=== PATIENT | male | born 1970 | race Hispanic/Latino ===

== ENCOUNTER 2017-01-19 16:48 | Inpatient (IN) ==
[2017-01-19] MEDS ORDERED: HUMULIN R IV ONE (17:38)
[2017-01-19 17:39] LABS: URINE CULTURE PL NEEDED? NO
[2017-01-19] MEDS ORDERED: NS 1,000 ML IV ONE (17:39)
[2017-01-19 17:40] LABS: MANUAL DIFF NEEDED? NO
[2017-01-19 17:43] LABS: BASO% 0.4 % (0.0-0.8); EOS# 0.37 X1000 (0.0-0.7); EOS% 3.8 % (0.0-10.0); HEMATOCRIT 46.1 % (42.0-52.0); HEMOGLOBIN 16.5 g/dL (14.0-18.0); IMM GRAN# 0.06 X1000 (0.0-0.04); IMM GRAN% 0.6 % (0.0-0.5); LYMPH# 1.36 X1000 (1.2-3.4); LYMPH% 13.9 % (20.5-51.1); MCH 31.6 PG (27-31); MCHC 35.8 g/dL (33-37); MCV 88.3 FL (81-99); MONO# 0.81 X1000 (0.11-0.59); MONO% 8.3 % (1.7-9.3); MPV 11.1 FL (7.4-10.4); PLT 181 X1000 (130-400); RBC 5.22 XMIL (4.7-6.1)
[2017-01-19] MEDS ORDERED: HUMULIN R (PARKWAY) ONE (17:43)
[2017-01-19 17:48] LABS: BILIRUBIN URINE NEGATIVE (NEGATIVE); BLOOD URINE NEGATIVE (NEGATIVE); CLARITY CLEAR (CLEAR); COLOR YELLOW; LEUKOCYTES URINE NEGATIVE (NEGATIVE); NITRITE URINE NEGATIVE (NEGATIVE); PROTEIN URINE NEGATIVE (NEGATIVE); UROBILINOGEN URINE NORMAL
[2017-01-19 17:52] LABS: URINE CAST NONE SEEN /LPF; URINE CRYSTAL NONE SEEN /HPF; URINE EPITHELIAL CELLS <10 /HPF (<10); URINE RBC <10 /HPF (<10); URINE SOURCE CLEAN CATCH; URINE WBC <10 /HPF (<10)
[2017-01-19 17:59] LABS: HEMOGLOBIN A1C 9.4 % (4.8-6.0)
--- NOTE | 2017-01-19 18:00 | PROVIDER DOCUMENTATION ---
This chart was entered by Marcy Oviedo Scribe, acting as scribe for Gaby Lafleur MD. HPI-General Adult - General Chief Complaint: High Blood Sugar Stated Complaint: BLOOD SUGAR Time Seen by Provider: 01/19/17 17:20 Source: patient Allergies/Adverse Reactions: Patient Allergies Allergy/AdvReac Type Severity Reaction Status Date / Time No Known Allergies Allergy Verified 01/19/17 17:01 Home Medications: Home Medication List Medication Instructions Recorded Confirmed Last Taken Type NK [No Home Medications] 01/19/17 01/19/17 Unknown History - History of Present Illness -Gen Adult Nature of Presenting Problems: PT is a 46 y/o M that presents to ED after being sent from Urgent care for High blood sugar. PT went to urgent care for lower back pain. They determined he did not have a UTI. pt had fsbs of 444 at urgent care. PT has no hx of DM. Location of Pain/Injury: reports: back (lumbar region), other (High blood sugar. sent from urgent care.) Pain Radiation: reports: no radiation Quality of Pain: reports: sharp Severity: reports: moderate Onset/Duration: reports: abrupt, other (2 weeks) Timing: reports: still present Context/Activities at Onset: reports: none Modifying Factors: improves with: nothing Associated Symptoms: reports: other (fatigue, urinating a lot and very thirsty.) Similar Symptoms Previously?: No Recently seen or treated by another doctor?: No Review of Systems - Adult - REVIEW OF SYSTEMS - ADULT Constitutional: reports: other (High blood sugar 444 in urgent care). denies: chills, fever Eyes: reports: no symptoms reported Ears, Nose, Mouth & Throat: reports: no symptoms reported Cardiovascular: reports: no symptoms reported Respiratory: reports: no symptoms reported Gastrointestinal: reports: no symptoms reported Genitourinary: reports: frequency Musculoskeletal: reports: back pain (lumbar) Integumentary: reports: no symptoms reported Neurological: reports: no symptoms reported Psychiatric: reports: no symptoms reported Endocrine: reports: increased thirst Hematologic/Lymphatic: reports: no symptoms reported Allergic/Immunologic: reports: no symptoms reported All Other Systems: Reviewed and Negative Past History - Adult - PAST MEDICAL HISTORY-ADULT Review of Records: reports: Old Records Reviewed, Nursing Assessment Review, Medications Reviewed - SOCIAL HISTORY Smoking: non-smoker Physical Exam-General - PHYSICAL EXAM-ADULT Initial Vital Signs Reviewed: Yes (pt finger stick in ED 454) - CONSTITUTIONAL General Appearance: appears well, alert, no apparent distress - EYES Eyes: PERRL/EOMI - HEAD, EARS, NOSE, MOUTH & THROAT HENMT: normocephalic/atraumatic, moist mucous membranes - NECK Neck: non-tender, full range of motion, supple - RESPIRATORY Respiratory: chest non-tender, lungs clear, normal breath sounds - CARDIOVASCULAR Cardiovascular: normal peripheral pulses, regular rate, rhythm, no edema - GASTROINTESTINAL (ABDOMEN) Abdominal Exam: normal bowel sounds, non tender, soft - LYMPHATIC Lymphatic: no adenopathy - MUSCULOSKELETAL Back Exam: normal inspection, no CVA tenderness, no vertebral tenderness Extremity: normal range of motion, non-tender - SKIN Integumentary: normal color, normal turgor, warm/dry - NEUROLOGIC Neurologic: patient safety manager II-XII nml as tested, grossly normal - PSYCHIATRIC Psych/Mental Status: normal mood/affect, normal thought content, oriented x 3 Progress - PLAN OF CARE/RESULTS Progress/Plan/Lab Results: Vital Signs - 8 hr 01/19/17 16:56 Temperature 98 F Pulse Rate 86 Respiratory Rate 18 Blood Pressure 148/94 O2 Sat by Pulse Oximetry 97 Laboratory Results - last 24 hr 01/19/17 01/19/17 01/19/17 17:02 17:30 17:36 WBC 9.81 RBC 5.22 Hgb 16.5 Hct 46.1 MCV 88.3 MCH 31.6 H MCHC 35.8 RDW Std Deviation 12.5 Plt Count 181 MPV 11.1 H Immature Gran % (Auto) 0.6 H Neut % (Auto) 73.0 Lymph % (Auto) 13.9 L [place] % (Auto) 8.3 Eos % (Auto) 3.8 Baso % (Auto) 0.4 Immature Gran # (Auto) 0.06 H Neut # (Auto) 7.17 H Lymph # (Auto) 1.36 [place] # (Auto) 0.81 H Eos # (Auto) 0.37 Baso # (Auto) 0.04 POC Glucose 454 H Urine Color YELLOW Urine Clarity CLEAR Urine pH 6.0 Ur Specific [place] 1.010 Urine Protein NEGATIVE Urine Ketones NEGATIVE Urine Blood NEGATIVE Urine Nitrite NEGATIVE Urine Bilirubin NEGATIVE Urine Urobilinogen NORMAL Urine WBC NEGATIVE Urine Glucose 3+(500 mg/dL) A Orders Category Date Time Status Finger Stick Blood Sugar (ED) DIRECTED Care 01/19/17 17:04 Active CHEST-PORTABLE [RAD] Stat Exams 01/19/17 17:40 Ordered A1C HGB W EST AVG GLUCOSE [CHEM] Stat Lab 01/19/17 17:36 Received ACETONE SERUM [CHEM] Stat Lab 01/19/17 17:36 Received CBC WITH DIFF [HEME] Stat Lab 01/19/17 17:36 Completed COMPREHENSIVE METABOLIC PANEL [CHEM] Stat Lab 01/19/17 17:[address] W/POSS RFLX CULT [URINALYSIS] Stat Lab 01/19/17 17:30 Results 0.9% Sodium Chloride Inj [Ns] 1,000 ml Med 01/19/17 17:39 Active IV 999 mls/hr Insulin Human Regular ([place] [Humulin R ([place])] Med 01/19/17 17:43 Discontinued 1 units .ROUTE .STK-MED ONE Insulin Human Regular [Humulin R] Med 01/19/17 17:38 Discontinued 8 unit IV NOW ONE Result Diagrams: 01/21/17 06:08 01/20/17 07:30 - CHANGE OF SHIFT REPORT (ED Provider) Report Given and Care Transferred to:: Dr. Sung Time of Transfer: 17:59 Items Pending: Labs, XRAY Results, Physician Consult/Arrival, Other (Dispo) Departure - Departure Date of Disposition Decision: 01/19/17 Time of Disposition Decision: 20:50 DIAGNOSIS: Hyperglycemia Disposition: ADMITTED INPATIENT 09 Certified Medical Emergency: Emergent Condition: Stable - Critical Care Note This patient required my direct & personal management of CC.: No Attestation - Physician/ JEROME Attestation Patient care was provided by Advanced Practice Provider:: No The physician spent face to face time with patient:: Yes Advanced Practice Provider documentation review:: Supervising physician onsite and consulted in the evaluation and care of this patient. The physician did have a face to face encounter with the patient. This chart was documented by the indicated scribe, (Marcy Oviedo, Brieibe) and accurately reflects the services I performed and decisions made by me, Gaby Lafleur MD, as attested by the provider's signature.
[2017-01-19 18:02] LABS: ACETONE SERUM NEGATIVE (NEGATIVE)
[2017-01-19 18:38] LABS: AGAP 16; ALBUMIN 4.5 g/dL (3.5-5.0); ALKALINE PHOSPHATASE 249 U/L (32-122); BUN 8 mg/dL (8-22); CALCIUM 9.1 mg/dL (8.8-10.2); CHLORIDE 94 mmol/L (98-107); COSMO 279; GOT 61 U/L (10-34); GPT 113 U/L (10-44); POTASSIUM 4.7 mmol/L (3.5-5.1); SODIUM 130 mmol/L (136-145); TCO2 20 mmol/L (25-35); TOTAL PROTEIN 8.1 g/dL (6.3-8.3)
[2017-01-19] MEDS ORDERED: NS 3,000 ML IV ONE (18:57)
--- NOTE | 2017-01-19 20:04 | Diag Imaging Result Doc PS360 ---
EXAM: CHEST-PORTABLE INDICATION: Cough TECHNIQUE: One view COMPARISON: None. FINDINGS: The lungs are grossly clear. There is no discrete pleural fluid collection or pneumothorax. The cardiomediastinal silhouette and central vasculature are grossly unremarkable. IMPRESSION: No evidence of acute pathology by plain radiograph. Electronically signed by Neptali Liu 01/19/2017 8:01 PM
[2017-01-19] MEDS ORDERED: HUMULIN R DOSE (PARKWAY) SUBQ SCH (21:00)
[2017-01-20] MEDS: HUMULIN R (PARKWAY) SUBQ SCH ×4 (06:06→21:45)
[2017-01-20 08:16] LABS: HEMATOCRIT 41.7 % (42.0-52.0); HEMOGLOBIN 14.7 g/dL (14.0-18.0); MCH 31.6 PG (27-31); MCHC 35.3 g/dL (33-37); MCV 89.7 FL (81-99); MPV 11.4 FL (7.4-10.4); RBC 4.65 XMIL (4.7-6.1)
[2017-01-20 08:24] LABS: AGAP 9; ALBUMIN 3.5 g/dL (3.5-5.0); ALKALINE PHOSPHATASE 180 U/L (32-122); BUN 7 mg/dL (8-22); CALCIUM 8.6 mg/dL (8.8-10.2); CHLORIDE 101 mmol/L (98-107); COSMO 275; GOT 64 U/L (10-34); GPT 94 U/L (10-44); MAGNESIUM 1.7 mg/dL (1.5-2.7); POTASSIUM 3.6 mmol/L (3.5-5.1); SODIUM 135 mmol/L (136-145); TCO2 24 mmol/L (25-35); TOTAL PROTEIN 6.9 g/dL (6.3-8.3)
[2017-01-20] MEDS: GLUCOPHAGE PO SCH ×2 (08:38→16:46)
[2017-01-20] MEDS: NS 1,000 ML IV SCH (13:16)
--- NOTE | 2017-01-20 14:39 | HISTORY AND PHYSICAL ---
CHIEF COMPLAINT: High blood sugar. HISTORY OF PRESENT ILLNESS: This is a 46-year-old gentleman who presented to an urgent care complaining of lower back pain. He was found to have a fingerstick blood sugar of 444, as he has no prior diagnosis of diabetes mellitus. He was sent to the ER for further evaluation. He does state that he has been having some low back pain over the last 2 weeks. It waxes and wanes. He describes it as a sharp pain. There is no radiation, no accompanying symptoms. He has been very thirsty and had very frequent urination over this last 2 weeks. He does have a history of low back pain. He denied any hematuria or dysuria, fever or chills. He was given a liter of IV fluid in the emergency room along with 8 units of insulin IV, and he is being admitted for further evaluation and treatment. PAST MEDICAL HISTORY: He denies. SOCIAL HISTORY: He denies alcohol, tobacco, or illicit drug use. PAST SURGICAL HISTORY: Denies. ALLERGIES: No known drug allergies. HOME MEDICATIONS: Denies. REVIEW OF SYSTEMS: A 14-point review of systems is discussed with patient with pertinent positives stated in the HPI. He denied chest pain, palpitations, dizziness, syncope, nausea, vomiting, diarrhea, constipation, black or bloody vomitus, black or bloody stools. PHYSICAL EXAMINATION: GENERAL: This is a 46-year-old male who is sitting in the bed in no distress. VITAL SIGNS: Blood pressure is 126/82 with a heart rate of 72, respirations are 18, temperature is 98.8 degrees with room air saturations of 98%. HEENT: Head is normocephalic, atraumatic. Pupils equal, round, react to light. EOMs are intact. Sclerae are anicteric. Mucous membranes are dry. NECK: Supple. Trachea midline. CARDIOVASCULAR: Regular rate and rhythm. S1, S2 appreciated. PULMONARY: Breath sounds are clear. No increased work of breathing noted. BACK: No CVAT. No spine tenderness. MUSCULOSKELETAL: Good range of motion of joints. NEUROLOGIC: He is alert and oriented x3. EXTREMITIES: No clubbing, cyanosis, or edema. Calves are nontender. Pulses are palpable x4. LABORATORY DATA: WBC is 9.81 with hemoglobin 16.5, hematocrit 46.1 and platelets of 181,000. Sodium is 130, potassium 4.7. BUN 8, creatinine 0.8 with a glucose of 458. Hemoglobin A1c is 9.4 with AST of 61, ALT of 113, and alkaline phosphatase of 249. Urinalysis is essentially negative. Acetone is negative. Chest x-ray reveals no evidence of acute pathology. ASSESSMENT AND PLAN: 1. New diagnosis of diabetes mellitus. 2. Hyperglycemia with a blood sugar of 58 and A1c of 9.4. 3. Hyponatremia. 4. Elevated liver function tests. 5. Deep venous thrombosis prophylaxis and gastrointestinal prophylaxis. He will be admitted to the hospital, placed on telemetry. We will continue IV hydration with nausea control. We will pattern blood glucose with sliding scale insulin. We will repeat labs in the morning. Further treatments pending hospital course. Dictated by MARANDA Ortega for Sandeep Martinez MD cc: MARANDA Ortega MD
[2017-01-20] MEDS: MOTRIN PO PRN (16:45)
[2017-01-21] MEDS: NS 1,000 ML IV SCH (03:22)
[2017-01-21 06:25] LABS: HEMATOCRIT 43.4 % (42.0-52.0); HEMOGLOBIN 15.2 g/dL (14.0-18.0); MCH 31.2 PG (27-31); MCV 89.1 FL (81-99); MPV 11.1 FL (7.4-10.4); RBC 4.87 XMIL (4.7-6.1)
[2017-01-21 06:48] LABS: AGAP 10; ALBUMIN 3.8 g/dL (3.5-5.0); ALKALINE PHOSPHATASE 153 U/L (32-122); BUN 9 mg/dL (8-22); CALCIUM 8.6 mg/dL (8.8-10.2); CHLORIDE 103 mmol/L (98-107); COSMO 276; GOT 124 U/L (10-34); GPT 124 U/L (10-44); POTASSIUM 3.8 mmol/L (3.5-5.1); SODIUM 137 mmol/L (136-145); TCO2 24 mmol/L (25-35); TOTAL PROTEIN 6.7 g/dL (6.3-8.3)
[2017-01-21] MEDS: HUMULIN R (PARKWAY) SUBQ SCH ×2 (07:34→11:48)
[2017-01-21] MEDS: GLUCOPHAGE PO SCH (08:00)
[2017-01-21 11:23] VITALS: BP 125/81
[2017-01-21] MEDS: MOTRIN PO PRN (11:54)
--- NOTE | 2017-01-21 13:49 | DISCHARGE SUMMARY ---
ADMISSION DATE: 01/19/2017 DISCHARGE DATE: 01/21/2017 DISCHARGE DIAGNOSIS: New onset diabetes. CONSULTATIONS: None. PROCEDURES: None. BRIEF HOSPITAL COURSE: Patient is a 46-year-old male who presented to the emergency department and subsequently diagnosed with new onset diabetes. He is currently awake and alert. He is in no distress. He is feeling better and, therefore, he will be discharged home on Glucophage. DISPOSITION: Patient will be discharged home. TIME SPENT: 35 minutes was spent in total discharge care. He did undergo education with a museum preparator prior to discharge. cc: Sandeep Martinez MD
[2017-01-24 11:13] LABS: HEPATITIS PROFILE ACUTE SEE COMMENTS
== END 2017-01-21 12:50 | disposition home or self-care (01) ==
LOC: P.ED 16:48 → P.MEDSURG 16:49
PROVIDERS: ATTEND Family Medicine